=== PATIENT | male | born 1965 | race American Indian/Alaskan Native ===

== ENCOUNTER 2019-04-05 16:34 | Emergency (ER) | payer SELFPAY ==
[2019-04-05 16:42] VITALS: BP 128/102
[2019-04-05] MEDS ORDERED: DUONEB *Not for PRN Use IH ONE (16:43)
--- NOTE | 2019-04-05 16:45 | Event Note ---
ED Screening Note Date of service: 04/05/19 Time: 16:41 ED Screening Note: This is a 53 y.o. M. that presents to the ER with PATRICIO x 2 days. Patient reports cough and chills. States symptoms increased today. He is a current smoker and drinker. PMH of asthma Denies chest pain States he drunk some beers this morning. This initial assessment/diagnostic orders/clinical plan/treatment(s) is/are subject to change based on patients health status, clinical progression and re- assessment by fellow clinical providers in the ED. Further treatment and workup at subsequent clinical providers discretion. Patient/guardian urged not to elope from the ED as their condition may be serious if not clinically assessed and managed. Initial orders include: Duoneb treatment
[2019-04-05] MEDS ORDERED: PROVENTIL IH ONE (17:32)
[2019-04-05] MEDS ORDERED: DECADRON IV ONE (17:47)
--- NOTE | 2019-04-05 18:52 | Emergency Department Report ---
ED General Adult HPI - General Chief complaint: Upper Respiratory Infection Stated complaint: SWEATS/GENERAL SICKNESS Time Seen by Provider: 04/05/19 16:41 Source: patient Mode of arrival: Ambulatory Limitations: No Limitations - History of Present Illness Initial comments: This is a 53 y.o. M. that presents to the ER with PATRICIO x 2 days. Patient reports cough and chills. States symptoms increased today. Eyes was stated He is a current smoker and drinker. PMH of asthma Denies chest pain patient states out of albuterol inhaler for the past 6 months. Patient is [id number] smoker Onset/Timin -: days(s) Location: chest Radiation: non-radiation Severity scale (0 -10): 4 Quality: other (cough wheezing sob ) Consistency: constant Improves with: none Worsens with: other (environmental exposure ) Associated Symptoms: cough, fever/chills, shortness of breath Treatments Prior to Arrival: none - Related Data Allergies Allergy/AdvReac Type Severity Reaction Status Date / Time ibuprofen [From Motrin] Allergy Hives Verified 04/05/19 16:42 ED Review of Systems ROS: Stated complaint: SWEATS/GENERAL SICKNESS Other details as noted in HPI Constitutional: chills, fever Eyes: denies: eye pain, eye discharge, vision change Respiratory: cough, shortness of breath, wheezing Cardiovascular: denies: chest pain, palpitations Endocrine: no symptoms reported Gastrointestinal: denies: abdominal pain, nausea, diarrhea Genitourinary: denies: urgency, dysuria Musculoskeletal: denies: back pain, joint swelling, arthralgia Skin: denies: rash, lesions Neurological: denies: headache, weakness, paresthesias Psychiatric: denies: anxiety, depression Hematological/Lymphatic: denies: easy bleeding, easy bruising ED Past Medical Hx - Past Medical History Previous Medical History?: Yes Hx Asthma: Yes - Surgical History Past Surgical History?: No - Social History Smoking Status: Current Every Day Smoker Substance Use Type: Alcohol ED Physical Exam - General Limitations: No Limitations General appearance: alert, in no apparent distress - Head Head exam: Present: atraumatic, normocephalic - Eye Eye exam: Present: normal appearance, PERRL, EOMI Pupils: Present: normal accommodation - ENT ENT exam: Present: normal orophraynx, mucous membranes moist, TM's normal b ilaterally, normal external ear exam - Neck Neck exam: Present: normal inspection, tenderness, full ROM. Absent: lymphadenopathy - Respiratory Respiratory exam: Present: wheezes. Absent: respiratory distress, rales, rhonchi, stridor, chest wall tenderness, prolonged expiratory - Cardiovascular Cardiovascular Exam: Present: regular rate, normal rhythm, normal heart sounds. Absent: systolic murmur, diastolic murmur, rubs, gallop - GI/Abdominal GI/Abdominal exam: Present: soft, normal bowel sounds. Absent: distended, tenderness, guarding, rebound, rigid, bruit, hernia - Rectal Rectal exam: Present: deferred - Extremities Exam Extremities exam: Present: normal inspection - Back Exam Back exam: Present: normal inspection, full ROM. Absent: tenderness, CVA tenderness (R), CVA tenderness (L), muscle spasm, rash noted - Neurological Exam Neurological exam: Present: alert, oriented X3, CN II-XII intact, normal gait, reflexes normal. Absent: motor sensory deficit - Psychiatric Psychiatric exam: Present: normal affect, normal mood - Skin Skin exam: Present: warm, dry, intact, normal color. Absent: rash ED Course Vital Signs 04/05/19 16:41 Temperature 98.2 F Pulse Rate 102 H Respiratory 22 Rate Blood Pressure 128/102 O2 Sat by Pulse 100 Oximetry ED Medical Decision Making - Medical Decision Making pt has eloped paged overhead x 3 no answer, called phone number ion face sheet no answer unable to leave message. Critical care attestation.: If time is entered above; I have spent that time in minutes in the direct care of this critically ill patient, excluding procedure time. ED Disposition Clinical Impression: Asthma Qualifiers: Asthma severity: moderate Asthma persistence: unspecified Asthma complication type: unspecified Qualified Code(s): J45.909 - Unspecified asthma, uncomplicated Disposition: ELOPED Is pt being admited?: No Does the pt Need Aspirin: No Condition: Undetermined Instructions: Asthma (ED) Time of Disposition: 19:43
== END 2019-04-05 19:15 | disposition left against medical advice (07) ==
LOC: ED 16:34
DX: J45.909 Unspecified asthma, uncomplicated (principal); F17.200 Nicotine dependence, unspecified, uncomplicated; Z88.6 Allergy status to analgesic agent
CPT/HCPCS: 96374; 99282; J1100

== ENCOUNTER 2019-08-02 13:41 | Emergency (ER) | payer MEDICAID, OTHER ==
[2019-08-02 14:35] VITALS: BP 128/94
--- NOTE | 2019-08-02 14:38 | Emergency Department Report ---
Blank Doc - Documentation Documentation: 54 Y/O MALE C/O OF RIGHT LOWER QUADRANT AND RIGHT FLANK PAIN THAT WORSENS WITH ROM AND MOVEMENT. MOTRIN HELPS. C/O CONSTIPATION AND DIARRHEA. ALSO HAS COUGH FOR 3 MONTHS. The patient was seen in triage for ABD PAIN Labs/imaging ordered to evaluate for a cause of this complaint. Vital signs reviewed, patient awake and alert in NAD.
== END 2019-08-02 16:52 | disposition left against medical advice (07) ==
LOC: ED 13:41
DX: R10.31 Right lower quadrant pain (principal); Z53.21 Procedure and treatment not carried out due to patient leaving prior to being seen by health care provider